=== PATIENT | male | born 1960 | race African-American/Black ===

== ENCOUNTER 2019-03-27 12:02 | Emergency (ER) | payer SELFPAY, BC, MEDICAID | END 2019-03-27 14:26 | disposition home or self-care (01) | LOC: FTE 12:02 | DX: M79.604 Pain in right leg (principal); I10 Essential (primary) hypertension; E11.9 Type 2 diabetes mellitus without complications; Z79.4 Long term (current) use of insulin | CPT/HCPCS: 93971; 99284-25 ==